=== PATIENT | male | born 1990 | race Hispanic/Latino ===

== ENCOUNTER 2016-11-19 23:05 | Emergency (ER) | payer OTHER ==
[~2016-11-19] VITALS: Ht 167.6 cm; Wt 90.9 kg
[~2016-11-19 23:05] MED LIST: GENTAMICIN SULF5 ML OP; KEPPRA1000 MG PO; LAMICTAL100 MG PO; MEDDOSEPAK PO; MOTRIN800 MG PO; ULTRAM50 M1 PO; VENTOLIN HFA IN; ZITHROMAX250 MG PO
[2016-11-20 00:12] LABS: HEMATOCRIT 37.9 % (39.0-50.0); HEMOGLOBIN 12.4 g/dl (14.0-18.0); IMMATURE GRANULOCYTES 0.6 % (0.0-1.0); MEAN CELL VOLUME 82.8 fL CALC (80.0-100.0); MEAN CORPUSCULAR HGB 27.1 pG CALC (26.0-32.0); MEAN CORPUSCULAR HGB CONC 32.7 g/L CALC (32.0-36.0); NEUT# 9.32 thou/uL (1.82-7.42); RED BLOOD COUNT 4.58 mill/uL (4.70-6.10)
[2016-11-20 00:25] LABS: ALBUMIN 4.6 g/dL (3.2-5.0); ALKALINE PHOSPHATASE 76 u/l (38-126); ANION GAP 17 (6-22 (CALC)); BILIRUBIN, TOTAL 0.2 mg/dL (0.0-1.4); BUN 13 mg/dL (9-20); BUN/CREATININE RATIO 15 (12-20 (CALC)); CALCIUM 9.4 mg/dL (8.4-10.2); CARBON DIOXIDE 26 mmol/l (22-30); CHLORIDE 103 mmol/l (95-108); CREATININE 0.9 mg/dL (0.7-1.3); ETHYL ALCOHOL 0 mg/dl (0-30); GFR > 60 ML/MIN (>=60 (CALC)); GFR FOR AFR.AMER. > 60 ML/MIN (>=60 (CALC)); GLUCOSE 108 mg/dL (75-110); POTASSIUM 4.5 mmol/l (3.5-5.1); SGOT/AST 27 u/l (17-59); SGPT/ALT 44 u/l (21-72); SODIUM 141 mmol/l (137-146); TOTAL PROTEIN 7.6 g/dL (6.3-8.2)
[2016-11-20 01:04] LABS: BARBITURATES NEGATIVE (NEGATIVE); COCAINE NEGATIVE (NEGATIVE); METHADONE NEGATIVE (NEGATIVE); OXCYCODONE NEGATIVE (NEGATIVE); TETRAHYDROCANNABIONOL NEGATIVE (NEGATIVE); TRICYLIC ANTIDEPRESSANTS NEGATIVE (NEGATIVE)
[2016-11-20 02:10] VITALS: BP 108/55
== END 2016-11-20 02:10 | disposition home or self-care (01) | DRG 101 ==
LOC: ED 23:05
PROVIDERS: Emergency Medicine
DX: G40.909 Epilepsy, unspecified, not intractable, without status epilepticus (principal); J45.909 Unspecified asthma, uncomplicated; Z91.14 Patient's other noncompliance with medication regimen

== ENCOUNTER 2017-02-19 19:58 | Emergency (ER) | payer OTHER ==
[~2017-02-19] VITALS: Ht 167.6 cm; Wt 90.0 kg
[2017-02-19] MEDS ORDERED: CEPHALEXIN500 MG PO (21:20)
[2017-02-19] MEDS ORDERED: ROBITUSSIN AC10 ML PO (21:20)
[2017-02-19 21:32] VITALS: BP 138/75
== END 2017-02-19 21:35 | disposition home or self-care (01) | DRG 101 ==
LOC: ED 19:58
DX: G40.909 Epilepsy, unspecified, not intractable, without status epilepticus (principal); J06.9 Acute upper respiratory infection, unspecified; J45.909 Unspecified asthma, uncomplicated

== ENCOUNTER 2017-05-12 21:33 | Emergency (ER) | payer OTHER ==
[~2017-05-12] VITALS: Ht 167.6 cm; Wt 88.2 kg
[~2017-05-12 21:33] MED LIST changes: +CEPHALEXIN500 MG PO; +ROBITUSSIN AC10 ML PO
[2017-05-12] MEDS ORDERED: ULTRAM50 M1 PO (23:07)
[2017-05-12 23:22] VITALS: BP 130/71
== END 2017-05-12 23:22 | disposition home or self-care (01) | DRG 563 ==
LOC: ED 21:33
DX: S43.401A Unspecified sprain of right shoulder joint, initial encounter (principal); G40.909 Epilepsy, unspecified, not intractable, without status epilepticus; J45.909 Unspecified asthma, uncomplicated; X58.XXXA Exposure to other specified factors, initial encounter

== ENCOUNTER 2019-02-22 21:48 | Emergency (ER) | payer BC ==
[~2019-02-22] VITALS: Ht 167.6 cm; Wt 86.3 kg
[2019-02-22 22:56] LABS: URINE BILIRUBIN - DIPSTICK NEGATIVE (NEGATIVE); URINE BLOOD DIPSTICK TRACE-INTACT (NEGATIVE); URINE COLOR YELLOW; URINE GLUCOSE - DIPSTICK NEGATIVE (NEGATIVE); URINE KETONE TRACE mg/dL (NEGATIVE); URINE LEUK ESTERASE NEGATIVE (NEGATIVE); URINE NITRITE - DIPSTICK NEGATIVE (Negative); URINE PROTEIN - DIPSTICK NEGATIVE (NEG-TRACE); URINE SPECIFIC GRAVITY 1.025; URINE UROBILINOGEN - DIPSTICK 0.2 E.U./dL (0.2)
[2019-02-22] MEDS ORDERED: PYRIDIUM200 MG PO (23:33)
[2019-02-22] MEDS ORDERED: KEFLEX500 MG PO (23:33)
[2019-02-23 00:28] VITALS: BP 110/72
== END 2019-02-23 00:28 | disposition home or self-care (01) | DRG 690 ==
LOC: ED 21:48
DX: N39.0 Urinary tract infection, site not specified (principal); N50.812 Left testicular pain; R30.0 Dysuria

== ENCOUNTER 2023-12-24 18:51 | Emergency (ER) | payer BC ==
[~2023-12-24] VITALS: Ht 167.6 cm; Wt 90.0 kg
[~2023-12-24 18:51] MED LIST changes: +KEFLEX500 MG PO; +PYRIDIUM200 MG PO
[2023-12-24] MEDS ORDERED: ASPIRIN 81 MG/TAB PO ONE (19:25)
[2023-12-24 19:49] LABS: BASO% 0.5 % (0-3); EOS% 3.9 % (0-8); HEMATOCRIT 37.5 % (39.0-50.0); HEMOGLOBIN 12.1 g/dl (14.0-18.0); IMMATURE GRANULOCYTES 0.1 % (0.0-5.0); LYMPH% 35.3 % (15-41); MEAN CELL VOLUME 85.8 fL CALC (80.0-100.0); MEAN CORPUSCULAR HGB 27.7 pG CALC (26.0-32.0); MEAN CORPUSCULAR HGB CONC 32.3 g/dL CAL (32.0-36.0); MONO% 6.2 % (2-13); NEUT# 5.47 thou/uL (1.82-7.42); RED BLOOD COUNT 4.37 mill/uL (4.70-6.10); RED CELL DISTRI WIDTH 12.4 % (11.5-15.5)
[2023-12-24 19:57] LABS: ALBUMIN 4.5 g/dL (3.2-5.0); ALKALINE PHOSPHATASE 82 u/l (38-126); ANION GAP 10 (6-22 (CALC)); BUN 11 mg/dL (9-20); BUN/CREATININE RATIO 13 (12-20 (CALC)); CARBON DIOXIDE 27 mmol/l (22-30); CHLORIDE 109 mmol/l (95-108); CREATININE 0.8 mg/dL (0.7-1.3); ESTIMATED GFR 119 ML/MIN (>=90 (CALC)); LIPASE 70 u/l (23-300); POTASSIUM 4.2 mmol/l (3.5-5.1); SGOT/AST 30 u/l (17-59); SODIUM 141 mmol/l (137-146); TOTAL PROTEIN 7.6 g/dL (6.3-8.2)
[2023-12-24 19:59] LABS: BILIRUBIN, TOTAL 0.3 mg/dL (0.2-1.3)
[2023-12-24 20:08] LABS: D-DIMER 0.17 mg/L (0.19-0.60); PROTHROMBIN TIME 9.8 SECONDS (9.0-12.5)
[2023-12-24 20:51] LABS: URINE BLOOD DIPSTICK Trace-intact (NEGATIVE); URINE GLUCOSE - DIPSTICK Negative (NEGATIVE); URINE KETONE Negative (NEGATIVE); URINE LEUK ESTERASE Negative (NEGATIVE); URINE NITRITE - DIPSTICK Negative (Negative); URINE PH 5.5 (4.5-8.0); URINE PROTEIN - DIPSTICK Negative (NEG-TRACE); URINE SPECIFIC GRAVITY >=1.030; URINE UROBILINOGEN - DIPSTICK 0.2 E.U./dL (0.2)
[2023-12-24 20:53] LABS: URINE COLOR Yellow
[2023-12-24] MEDS ORDERED: DEXAMETHASONE 2 MG/TAB TAB PO ONE (22:25)
[2023-12-24] MEDS ORDERED: VENTOLIN HFA108 MCG IN (22:28)
[2023-12-24 22:31] VITALS: BP 99/64
[2023-12-24 22:42] VITALS: BP 99/64
== END 2023-12-24 22:55 | disposition home or self-care (01) | DRG 192 ==
LOC: ED 18:51
PROVIDERS: Internal Medicine
DX: J47.9 Bronchiectasis, uncomplicated (principal); J45.909 Unspecified asthma, uncomplicated; G40.909 Epilepsy, unspecified, not intractable, without status epilepticus